=== PATIENT | female | born 1985 | race Caucasian/White ===

== ENCOUNTER 2017-01-12 21:00 | Inpatient (IN) | payer MEDICAID ==
--- NOTE | ~2017-01-12 | PN ---
Unit #: [id number] #: [id number] Patient: BJ LAMB [id number] [facility] [address] [place] [address] [id number] MR#: [id number] NAME: BJ LAMB ROOM: [facility] Age: 31 Sex: F Admission Date: 01/13/2017 : 1985 Attending Physician: Wilson Matute M.D. Admitting Physician: Wilson Matute M.D. Primary Care Physician: Ana Primary Care Physician KIARRA PROGRESS NOTES DATE 01/14/2017 DISCUSSION Ms. Diaz is a 31-year-old female, seen on 01/14/2017. The patient interviewed, chart reviewed, and obtained information from nursing staff. The patient was compliant, cooperative. Mood sad and dysphoric. Flat affect. No aggressive behavior. REVIEW OF SYSTEMS Complete review of system unremarkable. MENTAL STATUS EXAMINATION General appearance, the patient dressed casually. Attention span and concentration, fair. Oriented in place and person. Mood and affect, labile. Speech, monotone. Thought process, concrete. The patient denied any thoughts of harming self or others. Recent and remote memory, poor. Insight and judgment, poor. DIAGNOSES Amphetamine use disorder, severe. ASSESSMENT AND PLAN Advised to continue with current medication and therapeutic protocol. If needed, consider further adjustment of medication. Dictated by... Royer Foley/bridgett TD: 01/16/2017 10:00 JOB #: [id number] Unit #: [id number] #: [id number] Patient: BJ LAMB PROGRESS NOTES Page 1 of 1 X Wilson Matute MD PROGRESS NOTE
--- NOTE | ~2017-01-12 | HP ---
Unit #: [id number] #: [id number] Patient: JOE LAMB [id number] [place] [address] [id number] MR#: [id number] NAME: JOE LAMB ROOM: [facility] Age: 31 Sex: F Admission Date: 01/13/2017 : 1985 Attending Physician: Wilson Matute M.D. Admitting Physician: Wilson Matute M.D. Primary Care Physician: Primary Care Physician No HISTORY AND PHYSICAL HISTORY OF PRESENT ILLNESS Joe is a 31 year [address] [facility] because of her illicit drug use which includes smoking methamphetamine. She is a poor historian so her history is taken from her chart. PAST MEDICAL HISTORY History of illicit substance abuse. PAST SURGICAL HISTORY Nothing reported. ALLERGIES No known drug allergies. SOCIAL HISTORY Smokes 1 pack per day. Drinks alcohol rarely. Has a history of illicit substance abuse to include smoking meth. FAMILY HISTORY Medically not known. REVIEW OF SYSTEMS She does not answer questions appropriately. There are no reports of nausea, vomiting or diarrhea. She has had no cough or increased temperature. CURRENT MEDICATIONS 1. Zyprexa 5 mg b.i.d. 2. Nicotine patch 14 mg daily. 3. Milk of Magnesia p.r.n. 4. Maalox p.r.n. 5. Tylenol p.r.n. PHYSICAL EXAMINATION GENERAL: Alert, well-nourished, in no apparent distress. VITAL SIGNS: Blood pressure 100/60, heart rate 72, respirations 16, temperature 98.6. WEIGHT: 110. HEIGHT: 5 feet 0 inches. SKIN: Warm and dry without rash or lesion. HEENT: Normocephalic. TMs not viewed. Oral and nasal passages clear. Conjunctivae clear. PERRLA. EOMs intact. NECK: Supple without lymphadenopathy or thyromegaly. Unit #: [id number] #: [id number] Patient: JOE LAMB HEART: Regular rate and rhythm without murmur. LUNGS: Clear. ABDOMEN: Soft, nontender. : Not done. EXTREMITIES: No evidence of cyanosis, clubbing or edema. Moves all without focal deficit. NEUROLOGICAL: Grossly within normal limits. Cranial Nerves: II: Visual chin are intact. III, IV AND : Extraocular movements are intact. Pupils are equal, round and reactive to light. V: Facial sensation is grossly normal. VII: Facial movements and expression are normal. VIII: Auditory acuity grossly intact. IX, X: Uvula is midline. Phonation is normal. XI: Patient shrugs shoulders and turns head normally. XII: Tongue protrudes in the midline. Sensory and Motor Function: Sensory and motor sensation is grossly normal. Motor: moves all extremities well. Coordination: Gait is normal. Deep Tendon Reflexes: Intact. IMPRESSION Psychiatric admission. RECOMMENDATIONS PSYCHIATRIC: Per psychiatrist. MEDICAL: See no contraindications to participate in facility's activities. MEDICAL PROGNOSIS Good. MEDICAL CONDITION Stable. Dictated by... Joelle Hopson P.A.-C. for Royer Camp/jose TD: 01/13/2017 21:14 JOB #: [id number] HISTORY AND PHYSICAL Page 1 of 1 X Joelle Hopson X HISTORY AND PHYSICAL
--- NOTE | ~2017-01-12 | PN ---
Unit #: [id number] #: [id number] Patient: BJ LAMB [id number] [facility] [address] [place] [address] [id number] MR#: [id number] NAME: BJ LAMB ROOM: [facility] Age: 31 Sex: F Admission Date: 01/13/2017 : 1985 Attending Physician: Wilson Matute M.D. Admitting Physician: Wilson Matute M.D. Primary Care Physician: Primary Care Physician Ana PLUNKETT PROGRESS NOTES DATE 01/15/2017 DISCUSSION Ms. Diaz is a 31-year-old male seen on 01/15/2017. The patient compliant and cooperative tolerating medication fairly well making progress. No side effects from medication. Complete review of systems unremarkable. MENTAL STATUS EXAMINATION General appearance, the patient dressed casually. Attention span and concentration fair. Oriented to place and person. Mood and affect labile. Speech monotone. Thought process concrete. The patient denied any thoughts of harming self or others. Recent and remote memory poor. Insight and judgement poor. DIAGNOSES 1. Opioid use disorder severe. 2. Psychosis NOS. 3. Mood disorder NOS. ASSESSMENT/PLAN Advise to continue with current medication and therapeutic protocol. If needed consider further adjustment of medication. Dictated by... Royer Foley/jasson TD: 01/18/2017 02:25 JOB #: [id number] Unit #: [id number] #: [id number] Patient: BJ LAMB PROGRESS NOTES Page 1 of 1 X Wilson Matute MD X PROGRESS NOTE
--- NOTE | ~2017-01-12 | DS ---
Unit #: [id number] #: [id number] Patient: BJ LAMB [id number] [facility] [address] [place] [address] [id number] MR#: [id number] NAME: BJ LAMB ROOM: [facility] Age: 31 Sex: F Admission Date: 01/13/2017 : 1985 Discharge Date: 01/16/2017 Attending Physician: Wilson Matute M.D. Primary Care Physician: Primary Care Physician No DISCHARGE SUMMARY REASON FOR ADMISSION Meth abuse. DIAGNOSTIC STUDIES LABORATORY RESULTS: Remarkable for BUN of 16. HOSPITAL COURSE The patient was admitted to inpatient unit on 01/13/2017 and discharged on 01/16/2017. The patient was treated on the inpatient unit with detox protocol, chemical dependency group, expressive therapy, psychoeducation, and psychotherapy. The patient was responsive to treatment. Subsequently, the patient was discharged with a plan to follow up in outpatient program. DISCHARGE MEDICATIONS Zyprexa 10 mg at bedtime for mood stabilization and psychosis. DISCHARGE DIAGNOSES Psychiatric: Amphetamine use disorder, severe, F15.20; psychosis, not otherwise specified, F29.0. Secondary diagnosis: Deferred. Medical diagnosis: None. Stressors: Psychosocial stressors. DISCHARGE INSTRUCTIONS The patient to follow up in outpatient clinic as per protective services social worker. CONDITION ON DISCHARGE The patient was pleasant and cooperative. Denied any psychotic symptom or any suicidal ideation. PROGNOSIS Guarded. DIET AND ACTIVITY As tolerated. Dictated by... Wilson Matute M.D. Unit #: [id number] #: [id number] Patient: BJ LAMB SZC/modl TD: 01/17/2017 07:23 JOB #: [id number] DISCHARGE SUMMARY Page 1 of 1 X Wilson Matute MD X DISCHARGE SUMMARY
--- NOTE | ~2017-01-12 | PA ---
Unit #: [id number] #: [id number] Patient: JOE LAMB [id number] [place] [address] [id number] I MR#: [id number] NAME: JOE LAMB ROOM: [facility] Age: 31 Sex: F Admission Date: 01/13/2017 : 1985 Date of Assessment: Attending Physician: Wilson Matute M.D. Admitting Physician: Wilson Matute M.D. PSYCHIATRIC ASSESSMENT INFORMANTS The patient reliability, fair informant and chart reliability, good. CHIEF COMPLAINT Paranoia and detox. HISTORY OF PRESENT ILLNESS Joe Thompson is a 31-year-old female, presented with the above-mentioned complaint. The patient presented requesting for detox. Reports smoking meth everyday. The patient did not disclose the amount used. The patient reported feeling paranoid. Oriented in place and person. The patient denied any suicidal or homicidal ideation. Answered questions in short sentences. Withdrawn, isolative, guarded, paranoid, and attending to internal stimuli. The patient denied any other issues. Reported that she is wanting detox to get custody of her 10-year-old son back in her care who is with maternal grandmother. The patient needing inpatient admission at this time for psychiatric stabilization. PAST PSYCHIATRIC HISTORY Unknown for any previous treatment. FAMILY HISTORY AND SOCIAL HISTORY Unremarkable except for history of chemical dependency in uncle. The patient has poor support system. No history of abuse. No legal charges. MEDICAL HISTORY Unremarkable for any chronic medical illness. Musculoskeletal; muscle strength and tone, no atrophy or abnormal movement. Gait normal. MEDICATION HISTORY None. ALLERGIES No known drug allergies. SUBSTANCE ABUSE HISTORY The patient reported tobacco use, age of onset 11 and marijuana and amphetamine, age of onset 14. The patient denied any history of blackouts or IV drug use or HIV, hepatitis, or any withdrawal symptom, except currently reporting paranoia and depressed mood. REVIEW OF SYSTEMS Unit #: [id number] #: [id number] Patient: JOE LAMB HEENT: Eyes, clear. Ears, nose, mouth, and throat; clear. CARDIOVASCULAR: Unremarkable. RESPIRATORY: Unremarkable. GI: Unremarkable. : Unremarkable. SKIN: Unremarkable. LYMPH NODE: Unremarkable. NEUROLOGIC: Unremarkable. ENDOCRINE: Unremarkable. HEMATOLOGIC: Unremarkable. ALLERGIC/IMMUNOLOGIC: Unremarkable. MUSCULOSKELETAL: Muscle strength and tone, no atrophy or abnormal movement. Gait normal. MENTAL STATUS EXAMINATION CONSTITUTIONAL: Measurement of vital signs; temperature 98.6, heart rate 72, respiratory rate 20, and blood pressure 93/61. Height 5 feet and weight 110 pounds. GENERAL APPEARANCE: The patient dressed casually. No facial deformity noted. MUSCULOSKELETAL: Please see above. PSYCHIATRIC EXAMINATION Description of speech; regular rate, normal volume, normal articulation, and coherent. Description of thought process, goal directed. Description of association, intact. Description of abnormal psychotic thinking; the patient denied any auditory or visual hallucination, but guarded, paranoid, and attending to internal stimuli. Mood is sad, depressed, and substance abuse. Description of the patient's judgment: Concerning everyday activity, poor. Social situation, poor. Concerning psychiatric condition, poor. Complete mental status examination; oriented in time, place, and person. Recent and remote memory, fair. Attention span and concentration, fair. Language, able to name object and repeat phrases. Fund of knowledge, aware of current event and passive vocabulary intact. Mood and affect, sad and dysphoric. Insight and judgment, fair to poor. ASSETS AND LIABILITIES Assets, the patient is articulate and able to take care of her ADL. Liability, history of depression and substance abuse. ADMITTING DIAGNOSES Psychiatric: Amphetamine use disorder, severe, F15.20 and psychosis, not otherwise specified, F29.0. Secondary diagnosis: Deferred. Medical diagnosis: None. Stressors: Psychosocial stressors. PSYCHIATRIC PLAN AND TREATMENT GOAL AND DISCHARGE PLAN 1. Advised to admit the patient on the inpatient unit. Provide safe, supportive, and structured environment. 2. Ordered labs; CBC, CMP, UA, and UDS. 3. Precaution for psychosis. 4. Detox protocol and detox monitoring. Unit #: [id number] #: [id number] Patient: JOE LAMB TREATMENT GOAL To attain euthymic mood, gain insight into her problem, and learn coping skills. Advised Zyprexa 5 mg b.i.d. DISCHARGE PLAN Plan to stabilize the patient and consider followup in outpatient program. ESTIMATED LENGTH OF STAY 3 to 5 days. Dictated by... Royer Foley/roger TD: 01/13/2017 15:56 JOB #: [id number] PSYCHIATRIC ASSESSMENT Page 1 of 1 X Wilson Matute MD PSYCHIATRIC ASSESSMENT
[~2017-01-12 21:00] MED LIST: DOXYCYCLINE PO; EC-NAPROSYN500 MG PO
[2017-01-13 09:39] LABS: BASOPHIL% 0.4 % (0-2.5); EOSINOPHIL# 0.1 X10e3 (0-0.7); HEMOGLOBIN 13.6 gm/dL (12.0-16.0); LYMPHOCYTE# 2.7 X10e3 (1.0-3.5); MEAN CELL VOLUME 92.5 FL (83-96); MEAN CORPUSCULAR HEMOGLOBIN 30.6 PG (28-34); MEAN CORPUSCULAR HGB CONC 33.1 g/dL (30-36); MEAN PLATELET VOLUME 10.7 FL (6.5-11.5); MONOCYTE# 0.4 X10e3 (0-1.0); MONOCYTE% 7.7 % (3.0-12.0); NEUTROPHIL# 2.5 X10e3 (1.5-7.1); NEUTROPHIL% 43.9 % (40-75); PLATELET COUNT 226 X10e3 (140-420); RED BLOOD COUNT 4.43 X10e (3.90-5.30); RED CELL DISTRIBUTION WIDTH 12.8 % (11.0-15.5); WHITE BLOOD COUNT 5.8 X10e3 (4.0-10.5)
[2017-01-13 09:44] LABS: DIFF IND NO
[2017-01-13 10:34] LABS: ALBUMIN SERUM 3.8 g/dL (3.5-5.0); BILIRUBIN,TOTAL 1.1 mg/dL (0.2-2.0); CALCIUM SERUM 9.1 mg/dL (8.4-10.2); CREATININE SERUM 0.6 mg/dL (0.6-1.4); GLOM FILT RATE Estimated 122.3 mL/min (>60); POTASSIUM 3.8 mmol/L (3.5-5.1); PROTEIN TOTAL SERUM 6.4 g/dL (6.0-8.3)
== END 2017-01-16 14:15 | DRG 897 ==
LOC: P1E 01-13 00:52
PROVIDERS: Psychiatry & Neurology Psychiatry
DX: F15.20 Other stimulant dependence, uncomplicated (principal); F29 Unspecified psychosis not due to a substance or known physiological condition; F17.210 Nicotine dependence, cigarettes, uncomplicated
CPT/HCPCS: 80053; 84703; 85025

== ENCOUNTER 2017-03-14 11:29 | Emergency (ER) | payer OTHER ==
[~2017-03-14] VITALS: Ht 152.4 cm; Wt 54.4 kg
== END 2017-03-14 12:57 | disposition home or self-care (01) ==
LOC: CED 11:29 → CFTX 11:29
DX: B86 Scabies (principal); F41.9 Anxiety disorder, unspecified; F17.210 Nicotine dependence, cigarettes, uncomplicated
CPT/HCPCS: 99282